=== PATIENT | male | born 1970 | race Caucasian/White ===

== ENCOUNTER 2016-12-22 11:56 | Emergency (ER) | payer BC ==
--- NOTE | 2016-12-22 13:00 | EDPHY ---
H & P Stated Complaint: Abdo pain and diarrhea for 2 days. Back from [facility]. Time Seen by Provider: 12/22/16 12:47 HPI/ROS: CHIEF COMPLAINT: Diarrhea, abdominal cramping HISTORY OF PRESENT ILLNESS: The patient presents to the ED with complaints of diarrhea and abdominal cramping. The patient reports he returned from an a day trip to [facility] on Monday. He developed symptoms of abdominal cramping and diarrhea on Monday. The patient denies fever or vomiting. He denies cough or congestion. The patient denies significant past medical history. The patient does report mucus in his stool but denies blood. The patient states his abdominal cramping is generalized in nature and mild. REVIEW OF SYSTEMS: A comprehensive 10 point review of systems is otherwise negative aside from elements mentioned in the history of present illness. Source: Patient Exam Limitations: No limitations - Personal History Current Tetanus Diphtheria and Acellular Pertussis (TDAP): Yes - Medical/Surgical History Hx Asthma: No Hx Chronic Respiratory Disease: No Hx Diabetes: No Hx Cardiac Disease: No Hx Renal Disease: No Hx Cirrhosis: No Hx Alcoholism: No Hx HIV/AIDS: No Hx Splenectomy or Spleen Trauma: No Other PMH: Denies - Social History Smoking Status: Never smoked - Physical Exam Exam: General Appearance: Alert, no distress Eyes: Pupils equal and round no pallor or injection ENT, Mouth: Mucous membranes moist Respiratory: There are no retractions, lungs are clear to auscultation Cardiovascular: Regular rate and rhythm Gastrointestinal: Abdomen is soft and nontender, no masses, bowel sounds normal Neurological: A&O, normal motor function, normal sensory exam, normal cranial nerves Skin: Warm and dry, no rashes Musculoskeletal: Neck is supple nontender Extremities: symmetrical, full range of motion Constitutional: Initial Vital Signs Temperature (C) 36.8 C 12/22/16 11:58 Heart Rate 71 12/22/16 11:58 Respiratory Rate 16 12/22/16 11:58 Blood Pressure 123/93 H 12/22/16 11:58 O2 Sat (%) 95 12/22/16 11:58 O2 Delivery Mode Room Air Allergies/Adverse Reactions: No Known Allergies Allergy (Unverified 12/22/16 12:01) Home Medications: Medication Instructions Recorded Ciprofloxacin [Cipro] 500 mg PO BID #6 tab 12/22/16 Medical Decision Making ED Course/Re-evaluation: The patient presents to the ED with diarrhea after travel to [place]. The patient 's abdominal examination is benign. He is afebrile. His laboratory studies are within normal limits. A GI pathogen panel has been sent. The patient will be discharged home with a prescription for Cipro but will not start the antibiotic until he contacts us in several hours to check the results of his stool PCR study to ensure that E coli 157 is not present. The patient is also instructed to use Imodium. He will take ibuprofen as needed for pain. The patient was reexamined at 2:30 p.m.. He continues to have a benign abdominal examination. Differential Diagnosis: Differential diagnosis considered includes traveler's diarrhea, metabolic abnormality, dehydration, dysentery - Data Points Laboratory Results: Laboratory Results 12/22/16 12:45 12/22/16 12:45 12/22/16 12/22/16 12:45 12:45 WBC 4.59 10^3/uL 10^3/uL (3.80-9.50) RBC 5.13 10^6/uL 10^6/uL (4.40-6.38) Hgb 15.9 g/dL g/dL (13.7-17.5) Hct 44.7 % % (40.0-51.0) MCV 87.1 fL fL (81.5-99.8) MCH 31.0 pg pg (27.9-34.1) MCHC 35.6 g/dL g/dL (32.4-36.7) RDW 11.9 % % (11.5-15.2) Plt Count 210 10^3/uL 10^3/uL (150-400) MPV 10.1 fL fL (8.7-11.7) Neut % (Auto) 60.0 % % (39.3-74.2) Lymph % (Auto) 28.5 % % (15.0-45.0) [place] % (Auto) 10.0 % % (4.5-13.0) Eos % (Auto) 0.9 % % (0.6-7.6) Baso % (Auto) 0.4 % % (0.3-1.7) Nucleat RBC Rel Count 0.0 % % (0.0-0.2) Absolute Neuts (auto) 2.75 10^3/uL 10^3/uL (1.70-6.50) Absolute Lymphs (auto) 1.31 10^3/uL 10^3/uL (1.00-3.00) Absolute Monos (auto) 0.46 10^3/uL 10^3/uL (0.30-0.80) Absolute Eos (auto) 0.04 10^3/uL 10^3/uL (0.03-0.40) Absolute Basos (auto) 0.02 10^3/uL 10^3/uL (0.02-0.10) Absolute Nucleated RBC 0.00 10^3/uL 10^3/uL (0-0.01) Immature Gran % 0.2 % % (0.0-1.1) Immature Gran # 0.01 10^3/uL 10^3/uL (0.00-0.10) Sodium 138 mEq/L mEq/L (134-144) Potassium 4.0 mEq/L mEq/L (3.5-5.2) Chloride 102 mEq/L mEq/L (97-110) Carbon Dioxide 27 mEq/l mEq/l (22-31) Anion Gap 9 mEq/L mEq/L (8-16) BUN 9 mg/dL mg/dL (7-23) Creatinine 0.9 mg/dL mg/dL (0.7-1.3) Estimated GFR > 60 Glucose 93 mg/dL mg/dL (70-100) Calcium 10.0 mg/dL mg/dL (8.5-10.4) Total Bilirubin 0.7 mg/dL mg/dL (0.1-1.4) Conjugated Bilirubin 0.1 mg/dL mg/dL (0.0-0.5) Unconjugated Bilirubin 0.6 mg/dL mg/dL (0.0-1.1) AST 23 IU/L IU/L (17-59) ALT 34 IU/L IU/L (21-72) Alkaline Phosphatase 68 IU/L IU/L (38-126) Total Protein 7.2 g/dL g/dL (6.3-8.2) Albumin 4.3 g/dL g/dL (3.5-5.0) Lipase 94 IU/L IU/L (23-300) Medications Given: Discontinued Medications Sodium Chloride (Ns) 1,000 mls @ 0 mls/hr IV ONCE ONE PRN Reason: Wide Open Stop: 12/22/16 13:06 Last Admin: 12/22/16 13:07 Dose: 1,000 mls Departure - Departure Disposition: Home, Routine, Self-Care Clinical Impression: Travelers' diarrhea Condition: Good Instructions: Traveler's Diarrhea (ED) Additional Instructions: 1. Please contact the emergency department in 2 hours to check the results of your stool test. Please call the department at [phone] at 5:00 p.m. and asked to speak to Dr. Ohara. 2. You have been given a prescription for antibiotics pending the results of that study. Please wait to begin antibiotics until you have confirmed the results of your stool test. 3. Imodium as needed for diarrhea. 4. Take Ibuprofen or Motrin 600 mg by mouth three times a day. Referrals: Julio Moya MD [Primary Care Provider] - As per Instructions
[2016-12-22 13:01] LABS: % IMMATURE GRANULYOCYTES 0.2 % (0.0-1.1); ABSOLUTE IMMATURE GRANULOCYTES 0.01 10^3/uL (0.00-0.10); ADD DIFF? NO; ADD MORPH? NO; ADD SCAN? NO; ATYPICAL LYMPHOCYTE FLAG 60 (0-99); FRAGMENT RBC FLAG 10 (0-99); HEMATOCRIT 44.7 % (40.0-51.0); HEMOGLOBIN 15.9 g/dL (13.7-17.5); LEFT SHIFT FLG 0 (0-99); LIPEMIA HEMOLYSIS FLAG 90 (0-99); MEAN CELL HEMOGLOBIN CONCENTR. 35.6 g/dL (32.4-36.7); MEAN CELL VOLUME 87.1 fL (81.5-99.8); MEAN PLATELET VOLUME 10.1 fL (8.7-11.7); PLATELET CLUMPS FLAG 0 (0-99); PLATELET COUNT 210 10^3/uL (150-400); RED BLOOD CELL COUNT 5.13 10^6/uL (4.40-6.38); RED CELL DISTRIBUTION WIDTH 11.9 % (11.5-15.2)
[2016-12-22] MEDS ORDERED: NS 1,000 ML IV ONE (13:05)
[2016-12-22 13:14] LABS: ALANINE AMINOTRANSFERASE 34 IU/L (21-72); ALBUMIN 4.3 g/dL (3.5-5.0); ALKALINE PHOSPHATASE 68 IU/L (38-126); ANION GAP 9 mEq/L (8-16); ASPARTATE AMINOTRANSFERASE 23 IU/L (17-59); BILIRUBIN,TOTAL 0.7 mg/dL (0.1-1.4); BILIRUBIN-CONJUGATED 0.1 mg/dL (0.0-0.5); BILIRUBIN-UNCONJUGATED 0.6 mg/dL (0.0-1.1); CARBON DIOXIDE 27 mEq/l (22-31); CHLORIDE 102 mEq/L (97-110); CREATININE 0.9 mg/dL (0.7-1.3); GLOMERULAR FILTRATION RATE > 60; GLUCOSE 93 mg/dL (70-100); SODIUM 138 mEq/L (134-144); TOTAL PROTEIN 7.2 g/dL (6.3-8.2)
[2016-12-22 15:03] VITALS: BP 121/89; PULSE 78; RESP 18; TEMP 98.4; O2SAT 96
== END 2016-12-22 15:02 | disposition home or self-care (01) ==
DX: A09 Infectious gastroenteritis and colitis, unspecified (principal)

== ENCOUNTER 2018-09-28 09:36 | Emergency (ER) | payer OTHER | END 2018-09-28 10:25 | disposition home or self-care (01) ==